=== PATIENT | male | born 1990 | race Caucasian/White ===

== ENCOUNTER 2019-12-28 07:07 | Emergency (ER) | payer BC, OTHER ==
--- NOTE | 2019-12-28 07:46 | ED ---
Fever HPI - General Chief Complaint: Fever Stated Complaint: cough, fever Time Seen by Provider: 12/28/19 07:25 Source: patient, RN/MD, RN notes reviewed Mode of arrival: ambulatory Limitations: no limitations - History of Present Illness Initial Comments: This is a 29-year-old male who benign history who states he had the onset yesterday morning of a cough and then around 6 PM last evening he developed a fever. He states he got up to 102. He does state he went [facility] last night and was tested for influenza was negative at that time. He still has had a somewhat productive cough but he is not been able to expectorate any phlegm. No earaches sore throat or rhinorrhea at this time also just cough he also chills along with this. He states his chest and achy from coughing so much. MD Complaint: fever - Related Data Previous Rx's Medication Instructions Recorded Hydrocodone/Acetaminophen [[place] 1 each PO Q4HR PRN #20 tab 03/14/14 5-325] Ibuprofen 800 mg PO Q6HR PRN #20 tablet 12/28/19 Oseltamivir [Tamiflu] 75 mg PO Q12HR #10 cap 12/28/19 Allergies Allergy/AdvReac Type Severity Reaction Status Date / Time acetaminophen [From [place]] Allergy Unknown Vomiting Verified 12/28/19 07:27 hydrocodone bitartrate Allergy Unknown Vomiting Verified 12/28/19 07:27 [From [place]] Review of Systems ROS Statement: Those systems with pertinent positive or pertinent negative responses have been documented in the HPI. ROS Other: All systems not noted in ROS Statement are negative. Past Medical History Additional Past Medical History / Comment(s): kidney stones History of Any Multi-Drug Resistant Organisms: None Reported Additional Past Surgical History / Comment(s): wisdom teeth extraction Past Anesthesia/Blood Transfusion Reactions: No Reported Reaction Past Psychological History: No Psychological Hx Reported Smoking Status: Never smoker Past Alcohol Use History: Occasional Past Drug Use History: None Reported General Exam - General Exam Comments Initial Comments: This is a well-developed well-nourished awake alert oriented 3 male Limitations: no limitations General appearance: alert, in no apparent distress Head exam: Present: atraumatic, normocephalic, normal inspection Eye exam: Present: normal appearance, PERRL, EOMI. Absent: scleral icterus, conjunctival injection, periorbital swelling ENT exam: Present: mucous membranes moist, other (TMs are dull but no overt erythema or fluid at this time some boggy nasal mucosa at this time and normal posterior pharynx) Neck exam: Present: normal inspection. Absent: tenderness, meningismus, lymphadenopathy Respiratory exam: Present: normal lung sounds bilaterally. Absent: respiratory distress, wheezes, rales, rhonchi, stridor Cardiovascular Exam: Present: normal rhythm, tachycardia, normal heart sounds. Absent: systolic murmur, diastolic murmur, rubs, gallop, clicks GI/Abdominal exam: Present: soft, normal bowel sounds. Absent: distended, tenderness, guarding, rebound, rigid Extremities exam: Present: normal inspection, full ROM, normal capillary refill. Absent: tenderness, pedal edema, joint swelling, calf tenderness Back exam: Present: normal inspection Neurological exam: Present: alert, oriented X3, CN II-XII intact Psychiatric exam: Present: normal affect, normal mood Skin exam: Present: warm, dry, intact, normal color. Absent: rash Course Vital Signs 12/28/19 07:23 Temperature 100.4 F H Pulse Rate 108 H Respiratory 18 Rate Blood Pressure 143/85 O2 Sat by Pulse 96 Oximetry Medical Decision Making - Medical Decision Making I did discuss findings with patient and his family was present. Patient does have influenza type A be placed on appropriate medication we did discuss the treatment. Patient is in agreement. - Lab Data Lab Results 12/28/19 Range/Units 07:41 Influenza Type A RNA Detected H (Not Detectd) Influenza Type B (PCR) Not Detected (Not Detectd) - EKG Data -: EKG Interpreted by Me EKG shows normal: sinus rhythm, axis, intervals, QRS complexes, ST-T waves (EKG shows normal sinus rhythm a 93 DE interval 132 QRS 90 QT since QTC 352/[address]-T wave changes.) Rate: normal - Radiology Data Radiology results: report reviewed (I did review the imaging and report no acute findings.), image reviewed Disposition Clinical Impression: Influenza, Viral infection, Febrile illness, acute Disposition: HOME SELF-CARE Condition: Good Instructions (If sedation given, give patient instructions): Fever in Adults (ED), Viral Syndrome (ED), Influenza (ED) Additional Instructions: Prescription sent here preferred [facility] Prescriptions: Ibuprofen 800 mg PO Q6HR PRN #20 tablet PRN Reason: Pain Oseltamivir [Tamiflu] 75 mg PO Q12HR #10 cap Is patient prescribed a controlled substance at d/c from ED?: No Referrals: Sahara Peguero DO [Primary Care Provider] - 1-2 days
--- NOTE | 2019-12-28 08:06 | XR ---
EXAMINATION TYPE: XR chest 2V DATE OF EXAM: 12/28/2019 COMPARISON: NONE HISTORY: Cough and fever TECHNIQUE: Frontal and lateral views of the chest are obtained. FINDINGS: There is no focal air space opacity, pleural effusion, or pneumothorax seen. The cardiac silhouette size is within normal limits. The osseous structures are intact. IMPRESSION: No acute cardiopulmonary process.
[2019-12-28] MEDS ORDERED: OSELTAMIVIR 75 MG CAP PO STA (08:16)
[2019-12-28] MEDS ORDERED: IBUPROFEN 800 MG TAB PO STA (08:17)
[2019-12-28 08:29] VITALS: BP 132/81; PULSE 90; RESP 17; TEMP 100.2
== END 2019-12-28 08:29 | disposition home or self-care (01) ==
LOC: EC 07:07
DX: J10.1 Influenza due to other identified influenza virus with other respiratory manifestations (principal); R00.0 Tachycardia, unspecified; Z88.5 Allergy status to narcotic agent; Z88.6 Allergy status to analgesic agent
CPT/HCPCS: 71046; 87502; 93005; 99284